=== PATIENT | male | born 1965 | race Caucasian/White ===

== ENCOUNTER 2021-05-18 09:47 | Outpatient (CLI) | payer OTHER, SELFPAY ==
[2021-05-18 10:29] LABS: Hematocrit 46.1 % (42.0-52.0)
[2021-05-22 10:36] LABS: Testosterone Total 213 ng/dL (250-1100)
[2021-05-24 23:17] LABS: Estradiol, Ultrasensitive 16 pg/mL (< OR = 29)
== END 2021-05-18 09:48 | disposition home or self-care (01) ==
LOC: ANHLAB 09:55
PROVIDERS: PCP Family Medicine; Visit Provider Urology
DX: E29.1 Testicular hypofunction (principal)
CPT/HCPCS: 36415; 82670; 84403; 85014; 85018

== ENCOUNTER 2024-11-27 13:09 | Outpatient (CLI) | payer OTHER, SELFPAY ==
[2024-11-27 13:34] LABS: Hematocrit 47.6 % (42.0-52.0); Hemoglobin 14.4 g/dL (14.0-18.0)
[2024-12-04 11:09] LABS: Estradiol, Sensitive 39.0 pg/mL (8.0-35.0)
[2024-12-04 18:08] LABS: Testosterone, Total, LC/MS 750 ng/dL (.)
== END 2024-11-27 13:10 | disposition home or self-care (01) ==
LOC: ANHLAB 13:14
PROVIDERS: PCP Family Medicine; Visit Provider Urology
DX: E29.1 Testicular hypofunction (principal)
CPT/HCPCS: 36415; 82670; 84403; 85014; 85018